=== PATIENT | female | born 1980 | race Two or more races ===

== ENCOUNTER 2017-10-15 11:20 | Outpatient (CLI) | payer OTHER ==
[~2017-10-15 11:20] MED LIST: COZAAR50 MG
== END 2017-10-15 11:25 | disposition home or self-care (01) ==
LOC: LAB 11:20
DX: E55.9 Vitamin D deficiency, unspecified (principal); G37.8 Other specified demyelinating diseases of central nervous system; G35 Multiple sclerosis; I10 Essential (primary) hypertension; Z13.0 Encounter for screening for diseases of the blood and blood-forming organs and certain disorders involving the immune mechanism; Z13.220 Encounter for screening for lipoid disorders; Z13.29 Encounter for screening for other suspected endocrine disorder

== ENCOUNTER 2017-10-30 13:21 | Outpatient (CLI) | payer OTHER | END 2017-10-30 13:27 | disposition home or self-care (01) | LOC: MRI 13:21 | DX: G37.8 Other specified demyelinating diseases of central nervous system (principal) | CPT/HCPCS: 72156 ==

== ENCOUNTER 2018-03-03 12:07 | Emergency (ER) | payer OTHER ==
[~2018-03-03] VITALS: Ht 160 cm; Wt 102.1 kg
[2018-03-03] MEDS ORDERED: NORVASC5 MG (12:25)
[2018-03-03] MEDS ORDERED: HYZAAR 100-12.1 EACH PO (16:19)
[2018-03-03] MEDS ORDERED: NORVASC5 MG PO (16:19)
== END 2018-03-03 16:26 | disposition home or self-care (01) ==
LOC: ER 12:07
DX: I16.0 Hypertensive urgency (principal); I10 Essential (primary) hypertension

== ENCOUNTER 2018-12-17 07:36 | Outpatient (CLI) | payer OTHER ==
[~2018-12-17 07:36] MED LIST changes: +HYZAAR 100-12.1 EACH PO; +NORVASC5 MG; +NORVASC5 MG PO; +ROBAXIN500 MG PO
== END 2018-12-17 07:40 | disposition home or self-care (01) ==
LOC: MRI 07:36
DX: M54.6 Pain in thoracic spine (principal); R29.2 Abnormal reflex
CPT/HCPCS: 72146; 72148

== ENCOUNTER → 2019-04-24 | Outpatient (CLI) | payer OTHER | END | disposition home or self-care (01) | LOC: RAD 14:41 | DX: R05 Cough (principal) ==

== ENCOUNTER 2020-08-04 17:02 | Outpatient (CLI) | payer OTHER | END 2020-08-04 17:09 | disposition home or self-care (01) | LOC: RAD 17:02 | PROVIDERS: ATTEND Physical Medicine & Rehabilitation | DX: M77.31 Calcaneal spur, right foot (principal) ==

== ENCOUNTER 2020-08-15 17:00 | Outpatient (CLI) | payer OTHER | END 2020-08-15 17:03 | disposition home or self-care (01) | LOC: LAB 17:00 | PROVIDERS: ATTEND Physical Medicine & Rehabilitation | DX: R05 Cough (principal); R50.9 Fever, unspecified; R06.02 Shortness of breath; Z03.818 Encounter for observation for suspected exposure to other biological agents ruled out; M35.89 Other specified systemic involvement of connective tissue; Z11.52 Encounter for screening for COVID-19 ==

== ENCOUNTER 2020-09-14 13:28 | Outpatient (CLI) | payer OTHER | END 2020-09-14 13:49 | disposition home or self-care (01) | LOC: SONOGRAMA 13:28 | PROVIDERS: ATTEND Physical Medicine & Rehabilitation | DX: M79.671 Pain in right foot (principal); M72.2 Plantar fascial fibromatosis ==

== ENCOUNTER 2020-09-30 16:06 | Outpatient (CLI) | payer OTHER | END 2020-09-30 16:14 | disposition home or self-care (01) | LOC: RAD 16:06 | PROVIDERS: ATTEND Podiatrist Foot & Ankle Surgery | DX: M24.874 Other specific joint derangements of right foot, not elsewhere classified (principal); M72.2 Plantar fascial fibromatosis ==

== ENCOUNTER 2020-10-01 12:13 | Outpatient (CLI) | payer OTHER | END 2020-10-01 12:39 | disposition home or self-care (01) | LOC: LAB 12:13 | DX: E88.81 Metabolic syndrome and other insulin resistance (principal); M54.2 Cervicalgia ==

== ENCOUNTER 2020-10-20 16:18 | Outpatient (CLI) | payer OTHER | END 2020-10-20 16:22 | disposition home or self-care (01) | LOC: LAB 16:18 | PROVIDERS: ATTEND Pediatrics Neonatal-Perinatal Medicine | DX: R05 Cough (principal); R50.9 Fever, unspecified; R06.02 Shortness of breath; Z03.818 Encounter for observation for suspected exposure to other biological agents ruled out ==

== ENCOUNTER 2020-10-21 16:57 | Outpatient (CLI) | payer OTHER | END 2020-10-21 18:00 | disposition home or self-care (01) | LOC: LAB 16:57 | PROVIDERS: ATTEND Internal Medicine | DX: M79.641 Pain in right hand (principal); E66.8 Other obesity; E03.8 Other specified hypothyroidism ==

== ENCOUNTER 2020-10-28 14:02 | Outpatient (CLI) | payer OTHER | END 2020-10-28 14:12 | disposition home or self-care (01) | LOC: SONOGRAMA 14:02 | PROVIDERS: ATTEND Pediatrics Neonatal-Perinatal Medicine | DX: E04.2 Nontoxic multinodular goiter (principal) ==

== ENCOUNTER 2020-11-25 16:19 | Outpatient (CLI) | payer OTHER | END 2020-11-25 16:56 | disposition home or self-care (01) | LOC: LAB 16:19 | DX: R06.02 Shortness of breath (principal); R05 Cough; R06.01 Orthopnea; R50.9 Fever, unspecified; Z03.818 Encounter for observation for suspected exposure to other biological agents ruled out ==

== ENCOUNTER → 2020-11-30 09:46 | Outpatient (CLI) | payer OTHER | END | disposition home or self-care (01) | LOC: LAB 09:46 | PROVIDERS: ATTEND Pediatrics Neonatal-Perinatal Medicine | DX: R06.02 Shortness of breath (principal); Z03.818 Encounter for observation for suspected exposure to other biological agents ruled out ==

== ENCOUNTER 2022-04-05 14:39 | Outpatient (CLI) | payer OTHER | END 2022-04-05 14:51 | disposition home or self-care (01) | LOC: MAMO-SONO 14:39 | PROVIDERS: ATTEND Pediatrics Neonatal-Perinatal Medicine | DX: Z12.31 Encounter for screening mammogram for malignant neoplasm of breast (principal); Z12.39 Encounter for other screening for malignant neoplasm of breast ==

== ENCOUNTER 2022-04-20 15:07 | Outpatient (CLI) | payer OTHER | END 2022-04-20 15:17 | disposition home or self-care (01) | LOC: PPH VACUNA 15:07 | PROVIDERS: ATTEND Emergency Medicine Pediatric Emergency Medicine | DX: Z23 Encounter for immunization (principal) ==

== ENCOUNTER 2022-04-20 15:08 | Outpatient (CLI) | payer OTHER | END 2022-04-20 15:18 | disposition home or self-care (01) | LOC: PPH VACUNA 15:08 | PROVIDERS: ATTEND Emergency Medicine Pediatric Emergency Medicine | DX: Z23 Encounter for immunization (principal) ==

== ENCOUNTER → 2023-07-08 13:19 | Outpatient (CLI) | payer OTHER ==
[2023-07-08 14:21] LABS: HEMATOCRIT 35.7 % (36.0-45.00); HEMOGLOBIN 12.5 g/dL (12.0-15.00); MEAN CELL VOLUME 87.1 fL (80.00-100.00); MEAN CORPUSCULAR HEMOGLOBIN 30.6 pg (27.00-32.0); MEAN CORPUSCULAR HGB CONC 35.1 g/dl (32.0-36.0); PLATELET COUNT 482 K/uL (150-450); RED CELL DISTRIBUTION WIDTH 13.3 % (11.5-14.5)
[2023-07-08 14:59] LABS: MYCOPLASMA PNEUMONIAE IGM NON REACTIVE (NO REACTIVE)
== END | disposition home or self-care (01) ==
LOC: LAB 13:19
PROVIDERS: ATTEND Pediatrics Neonatal-Perinatal Medicine
DX: A49.3 Mycoplasma infection, unspecified site (principal); Z20.822 Contact with and (suspected) exposure to COVID-19; Z20.828 Contact with and (suspected) exposure to other viral communicable diseases; B97.4 Respiratory syncytial virus as the cause of diseases classified elsewhere; J18.0 Bronchopneumonia, unspecified organism; D64.9 Anemia, unspecified

== ENCOUNTER 2024-03-05 19:29 | Emergency (ER) | payer OTHER ==
[~2024-03-05] VITALS: Ht 160 cm; Wt 78.9 kg
[2024-03-05] MEDS ORDERED: KETOROLAC TROMETHAMINE 60 MG VIAL IM ONE (20:30)
[2024-03-05 21:04] LABS: HEMATOCRIT 36.4 % (36.0-45.00); MEAN CELL VOLUME 86.4 fL (80.00-100.00); MEAN CORPUSCULAR HEMOGLOBIN 30.9 pg (27.00-32.0); MEAN CORPUSCULAR HGB CONC 35.7 g/dl (32.0-36.0); PLATELET COUNT 434 K/uL (150-450); RED BLOOD COUNT 4.21 M/uL (4.00-6.00); RED CELL DISTRIBUTION WIDTH 13.5 % (11.5-14.5)
[2024-03-05 21:31] LABS: ALBUMIN 3.9 gm/dL (3.4-5.0); BILIRUBIN TOTAL 0.63 mg/dL (0.3-1.2); CALCIUM 9.5 mg/dL (8.5-10.1); CREATININE SERUM 0.67 mg/dL (0.55-1.02); GFR 96.52; GLOBULINA 3.5 G/DL (2.4-3.5); POTASSIUM 4.42 mEq/L (3.5-5.1); TOTAL PROTEIN 7.4 gm/dL (6.4-8.2)
== END 2024-03-05 22:08 | disposition home or self-care (01) ==
LOC: ER 19:31
PROVIDERS: General Practice
DX: R55 Syncope and collapse (principal); I10 Essential (primary) hypertension; E11.9 Type 2 diabetes mellitus without complications

== ENCOUNTER 2024-05-08 13:25 | Outpatient (CLI) | payer OTHER | END 2024-05-08 13:37 | disposition home or self-care (01) | LOC: MRI 13:25 | PROVIDERS: ATTEND Physical Medicine & Rehabilitation | DX: M25.552 Pain in left hip (principal); M25.569 Pain in unspecified knee; M54.16 Radiculopathy, lumbar region | CPT/HCPCS: 72148 ==